=== PATIENT | female | born 1955 | race Caucasian/White ===

== ENCOUNTER 2019-08-11 17:30 | Emergency (ER) | payer BC ==
[2019-08-11] MEDS ORDERED: HYDROmorphone 0.5 MG/0.5 ML Syringe IVPUSH ONE (17:55)
--- NOTE | 2019-08-11 18:01 | EDM.PDOC ---
<Maria Eugenia Hopper - Last Filed: 08/11/19 18:31> ED HPI GENERAL MEDICAL PROBLEM - General Chief Complaint: Chest Pain Stated Complaint: CHEST PAIN Time Seen by Provider: 08/11/19 17:56 Source of Information: Reports: Patient History Limitations: Reports: No Limitations - History of Present Illness INITIAL COMMENTS - FREE TEXT/NARRATIVE: pt arrived with pain with deep breathing and chest wall tenderness, She has not fallen or injured her self. She has not had a fever. Pt states the pain started earlier today and it has gotten progressively worse. She does feel sob. She does have good oxgenation. Onset: Today, Other ( this has gotten alot worse through the day. ) Duration: Hour(s):, Getting Worse Location: Reports: Chest Associated Symptoms: Reports: Chest Pain, Weakness Chest Pain Score (Numeric/FACES): 8 - Related Data Allergies Allergy/AdvReac Type Severity Reaction Status Date / Time No Known Allergies Allergy Verified 08/11/19 17:39 Home Meds: Home Meds Levothyroxine 75 mcg PO ACBREAKFAST 08/11/19 [History] Simvastatin 20 mg PO DAILY 08/11/19 [History] metFORMIN [Glucophage] 500 mg PO DAILY 08/11/19 [History] Past Medical History HEENT History: Reports: Cataract, Impaired Vision Cardiovascular History: Reports: High Cholesterol Genitourinary History: Reports: None SHIP/REC/DOC CONTROL History: Reports: Endocrine/Metabolic History: Reports: Diabetes, Type II, Hypothyroidism - Past Surgical History Head Surgeries/Procedures: Reports: None HEENT Surgical History: Reports: None Cardiovascular Surgical History: Reports: None Female Surgical History: Reports: Breast Biopsy Endocrine Surgical History: Reports: None Dermatological Surgical History: Reports: None Social & Family History - Tobacco Use Smoking Status *Q: Current Every Day Smoker Years of Tobacco use: 45 Packs/Tins Daily: 0.4 Used Tobacco, but Quit: No Second Hand Smoke Exposure: No - Caffeine Use Caffeine Use: Reports: Coffee - Recreational Drug Use Recreational Drug Use: No ED ROS GENERAL - Review of Systems Review Of Systems: See Below Constitutional: Reports: Weakness, Fatigue HEENT: Reports: No Symptoms Respiratory: Reports: Shortness of Breath, Other (alot of pain with deep breathing. on the left side. ) Cardiovascular: Reports: Chest Pain Endocrine: Reports: No Symptoms GI/Abdominal: Reports: No Symptoms : Reports: No Symptoms Musculoskeletal: Reports: No Symptoms Skin: Reports: No Symptoms Neurological: Reports: No Symptoms Psychiatric: Reports: No Symptoms ED EXAM, GENERAL - Physical Exam Free Text/Narrative:: pt arrived with pain in her chest when she takes a deep bereath. She has not had a fever. She has felt quite sob. Exam Limited By: No Limitations General Appearance: Alert, Anxious, Moderate Distress Ears: Normal TMs Nose: Normal Inspection Throat/Mouth: Normal Inspection Head: Atraumatic Neck: Normal Inspection Respiratory/Chest: Decreased Breath Sounds, Splinting, Other ( Pt is tender to palpate the costosternal area and the lower chest wall. ) Cardiovascular: Regular Rate, Rhythm GI/Abdominal: Soft, Non-Tender (Female) Exam: Deferred Rectal (Female) Exam: Deferred Back Exam: Normal Inspection Extremities: Normal Inspection Neurological: Alert, Oriented, Normal Cognition Psychiatric: Anxious Course - Vital Signs Last Recorded V/S: Last Vital Signs Temp 96.4 F L 08/11/19 17:50 Pulse 92 08/11/19 18:11 Resp 20 08/11/19 18:11 BP 159/102 H 08/11/19 18:11 Pulse Ox 93 L 08/11/19 18:11 - Orders/Labs/Meds Orders: Active Orders 24 hr Category Date Time Status EKG Documentation Completion [RC] ASDIRECTED Care 08/11/19 17:34 Active Chest 1V Frontal [CR] Stat Exams 08/11/19 17:54 Taken EKG 12 Lead [EK] Routine Ther 08/11/19 17:34 Ordered Labs: Laboratory Tests 08/11/19 08/11/19 08/11/19 Range/Units 17:35 17:35 17:35 WBC 8.3 (4.5-11.0) K/uL RBC 5.23 (3.30-5.50) M/uL Hgb 15.6 H (12.0-15.0) g/dL Hct 46.8 (36.0-48.0) % MCV 90 (80-98) fL MCH 30 (27-31) pg MCHC 33 (32-36) % Plt Count 342 (150-400) K/uL Neut % (Auto) 44 (36-66) % Lymph % (Auto) 38 (24-44) % [place] % (Auto) 14 H (2-6) % Eos % (Auto) 3 (2-4) % Baso % (Auto) 1 (0-1) % D-Dimer, Quantitative (0.0-400.0) ng/mL Sodium 138 L (140-148) mmol/L Potassium 3.5 L (3.6-5.2) mmol/L Chloride 102 (100-108) mmol/L Carbon Dioxide 26 (21-32) mmol/L Anion Gap 13.5 (5.0-14.0) mmol/L BUN 10 (7-18) mg/dL Creatinine 0.7 (0.6-1.0) mg/dL Est Cr Clr Drug Dosing 70.11 mL/min Estimated GFR (MDRD) > 60 (>60) Glucose 143 H (74-106) mg/dL Calcium 10.2 H (8.5-10.1) mg/dL Total Bilirubin 0.6 (0.2-1.0) mg/dL AST 11 L (15-37) U/L ALT 25 (12-78) U/L Alkaline Phosphatase 127 H (46-116) U/L Troponin I < 0.017 (0.000-0.056) ng/mL C-Reactive Protein (0.0-0.3) mg/dL Total Protein 8.5 H (6.4-8.2) g/dL Albumin 4.2 (3.4-5.0) g/dL Globulin 4.3 H (2.3-3.5) g/dL Albumin/Globulin Ratio 1.0 L (1.2-2.2) 08/11/19 08/11/19 Range/Units 17:35 17:35 WBC (4.5-11.0) K/uL RBC (3.30-5.50) M/uL Hgb (12.0-15.0) g/dL Hct (36.0-48.0) % MCV (80-98) fL MCH (27-31) pg MCHC (32-36) % Plt Count (150-400) K/uL Neut % (Auto) (36-66) % Lymph % (Auto) (24-44) % [place] % (Auto) (2-6) % Eos % (Auto) (2-4) % Baso % (Auto) (0-1) % D-Dimer, Quantitative 184 (0.0-400.0) ng/mL Sodium (140-148) mmol/L Potassium (3.6-5.2) mmol/L Chloride (100-108) mmol/L Carbon Dioxide (21-32) mmol/L Anion Gap (5.0-14.0) mmol/L BUN (7-18) mg/dL Creatinine (0.6-1.0) mg/dL Est Cr Clr Drug Dosing mL/min Estimated GFR (MDRD) (>60) Glucose (74-106) mg/dL Calcium (8.5-10.1) mg/dL Total Bilirubin (0.2-1.0) mg/dL AST (15-37) U/L ALT (12-78) U/L Alkaline Phosphatase (46-116) U/L Troponin I (0.000-0.056) ng/mL C-Reactive Protein 0.11 (0.0-0.3) mg/dL Total Protein (6.4-8.2) g/dL Albumin (3.4-5.0) g/dL Globulin (2.3-3.5) g/dL Albumin/Globulin Ratio (1.2-2.2) Meds: Medications Discontinued Medications Generic Name Dose Route Start Last Admin Trade Name Rebekah PRN Reason Stop Dose Admin Hydromorphone HCl 0.5 mg 08/11/19 17:55 08/11/19 18:07 Dilaudid IVPUSH 08/11/19 17:56 0.5 mg ONETIME ONE Administration Ketorolac Tromethamine 30 mg 08/11/19 18:31 08/11/19 18:44 Toradol IVPUSH 08/11/19 18:32 30 mg ONETIME ONE Administration - Re-Assessments/Exams Free Text/Narrative Re-Assessment/Exam: 08/11/19 18:13 pt has a unremarkable ekg. her trop is normal. Pt has alot of pain with deep breathing. She is tender to palpate. over the left chest. 08/11/19 18:27 Departure - Departure Disposition: Home, Self-Care 01 Clinical Impression: Non-cardiac chest pain Instructions: Nonspecific Chest Pain, Adult, [id number] Referrals: Deirdre Vasquez MD [Primary Care Provider] - Forms: ED Department Discharge Care Plan Goals: Take 1 Toradol every 6 hours and increase activity as tolerated. Return anytime if worsening despite treatment, especially difficulty breathing or unrelenting pain. Consider rechecking with your regular doctor within the next week for recheck and consider setting up an outpatient stress test. Sepsis Event Note - Evaluation Sepsis Screening Result: No Definite Risk - Focused Exam Vital Signs: Vital Signs Temp Pulse Resp BP Pulse Ox 08/11/19 18:11 92 20 159/102 H 93 L 08/11/19 18:02 100 25 H 160/101 H 96 08/11/19 17:51 96 24 H 194/112 H 95 08/11/19 17:50 96.4 F L 95 22 H 178/115 H 97 08/11/19 17:41 96.4 F L 95 22 H 178/115 H 97 Date Exam was Performed: 08/11/19 Time Exam was Performed: 18:31 <Rodrigo Vásquez - Last Filed: 08/11/19 19:39> ED EXAM, GENERAL - Physical Exam Exam: See Below Course - Re-Assessments/Exams Free Text/Narrative Re-Assessment/Exam: 08/11/19 18:42 Patient turned over from Dr. Hopper, all her lab work and work-up is gone but we are waiting to see how she responds to some IV pain medication. Her history, physical, and labs to lean more towards a musculoskeletal pain or possible pleurisy type pain and she is feeling better since the medications. Departure - Departure Time of Disposition: 18:59 Reason for Transfer *Q: Other Sepsis Event Note - Focused Exam Date Exam was Performed: 08/11/19 Time Exam was Performed: 19:39
[2019-08-11] MEDS ORDERED: Ketorolac 30 MG/ML SDV IVPUSH ONE (18:31)
--- NOTE | 2019-08-12 10:53 | CR ---
CHEST: Portable 08/11/2019 at 6:08 PM CLINICAL HISTORY:Chest pain COMPARISON:None FINDINGS: Heart size is normal. Pulmonary vascularity is mildly cephalized. There are atherosclerotic changes in the aorta. There is mild generalized interstitial prominence. This may be chronic. Impression: Mild vascular cephalization and interstitial prominence. This may represent some pulmonary venous hypertension. Some of this may be chronic. The upright two-view chest recommended when patient's condition allows.
== END 2019-08-11 18:59 | disposition home or self-care (01) ==
LOC: JP.ED 17:30
DX: R07.89 Other chest pain (principal); R06.02 Shortness of breath; E78.00 Pure hypercholesterolemia, unspecified; E11.9 Type 2 diabetes mellitus without complications; E03.9 Hypothyroidism, unspecified; F17.210 Nicotine dependence, cigarettes, uncomplicated; Z79.84 Long term (current) use of oral hypoglycemic drugs; Z79.899 Other long term (current) drug therapy
CPT/HCPCS: 36415; 71045; 80053; 84484; 85025; 85379; 86140; 93005; 96374; 96375; 99285; J1170; J1885

== ENCOUNTER 2021-03-24 09:25 | Emergency (ER) | payer MEDICARE ==
--- NOTE | 2021-03-24 09:42 | EDM.PDOC ---
ED HPI GENERAL MEDICAL PROBLEM - General Chief Complaint: Upper Extremity Injury/Pain Stated Complaint: FALL ON RT ARM Time Seen by Provider: 03/24/21 09:41 Source of Information: Reports: Patient History Limitations: Reports: No Limitations - History of Present Illness INITIAL COMMENTS - FREE TEXT/NARRATIVE: pt fellyesterday and landed on her rt shoulder. Today she is swollen and very uncomfortable. Onset: Gradual, Other ( fell yesterday. ) Duration: Hour(s): Location: Reports: Upper Extremity, Right Right Upper Arm Pain Score (Numeric/FACES): 3 - Related Data Allergies Allergy/AdvReac Type Severity Reaction Status Date / Time No Known Allergies Allergy Verified 03/24/21 09:41 Home Meds: Home Meds Levothyroxine 88 mcg PO ACBREAKFAST 08/11/19 [History] Simvastatin 40 mg PO DAILY 08/11/19 [History] metFORMIN [Glucophage] 500 mg PO DAILY 08/11/19 [History] Aspirin [Halfprin] 81 mg PO DAILY 03/24/21 [History] lisinopriL [Lisinopril] 2.5 mg PO DAILY 03/24/21 [History] Zoledronic Acid in Water [Reclast] 5 mg IV .YEARLY 03/28/21 [History] Past Medical History HEENT History: Reports: Cataract, Impaired Vision Cardiovascular History: Reports: High Cholesterol Genitourinary History: Reports: None 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: Reports: Endocrine/Metabolic History: Reports: Diabetes, Type II, Hypothyroidism - Past Surgical History Head Surgeries/Procedures: Reports: None HEENT Surgical History: Reports: None Cardiovascular Surgical History: Reports: None Female Surgical History: Reports: Breast Biopsy Endocrine Surgical History: Reports: None Dermatological Surgical History: Reports: None Social & Family History - Caffeine Use Caffeine Use: Reports: Coffee Review of Systems - Review of Systems Review Of Systems: See Below Constitutional: Reports: No Symptoms Eyes: Reports: No Symptoms Ears: Reports: No Symptoms Nose: Reports: No Symptoms Mouth/Throat: Reports: No Symptoms Respiratory: Reports: No Symptoms Cardiovascular: Reports: No Symptoms GI/Abdominal: Reports: No Symptoms Genitourinary: Reports: No Symptoms Musculoskeletal: Reports: Other (painful swollen rt shoulder. ) Skin: Reports: No Symptoms ED EXAM, GENERAL - Physical Exam Exam: See Below Free Text/Narrative:: pt arrived with pain and swelling in the upper rt shoulder. She is havingalot of dioscomfort when she moves the arm. Exam Limited By: No Limitations General Appearance: Alert, Anxious Extremities: Other (pt has swelling in the upper rt arm. She is very tender to palpate the area. She does not have bruising. ) Neurological: Alert, Oriented, Normal Cognition Course - Vital Signs Last Recorded V/S: Last Vital Signs Temp 36.4 C 03/24/21 09:39 Pulse 90 03/24/21 09:39 Resp 18 03/24/21 09:39 BP 136/74 03/24/21 09:39 Pulse Ox 99 03/24/21 09:39 - Re-Assessments/Exams Free Text/Narrative Re-Assessment/Exam: 04/02/21 18:46 xray revealed a fracture of the rt greater tuberosity. Departure - Departure Time of Disposition: 10:20 Disposition: Home, Self-Care 01 Condition: Fair Clinical Impression: Fracture of greater tuberosity of humerus Qualifiers: Encounter type: initial encounter Fracture type: closed Laterality: right - Discharge Information Instructions: Distal Humerus Elbow Fracture Referrals: Deirdre Vasquez MD [Primary Care Provider] - Forms: ED Department Discharge Care Plan Goals: sling, ortho appt. Pt feels motrin and tylenol will control pain, cool pack area. Sepsis Event Note (ED) - Evaluation Sepsis Screening Result: No Definite Risk
--- NOTE | 2021-03-25 15:03 | CR ---
Shoulder Comp Rt CLINICAL HISTORY: Fall FINDINGS: There is a minimally displaced fracture of the greater tubercle of the humerus. Glenohumeral joint is intact Impression: Fracture greater tubercle
== END 2021-03-24 10:35 | disposition home or self-care (01) ==
LOC: JP.ED 09:25
DX: S42.251A Displaced fracture of greater tuberosity of right humerus, initial encounter for closed fracture (principal); E78.00 Pure hypercholesterolemia, unspecified; E11.9 Type 2 diabetes mellitus without complications; E03.9 Hypothyroidism, unspecified; Z79.899 Other long term (current) drug therapy; Z79.82 Long term (current) use of aspirin; W18.39XA Other fall on same level, initial encounter
CPT/HCPCS: 73030-26-RT; 73030-RT; 99283